=== PATIENT | female | born 1960 | race Caucasian/White ===

== ENCOUNTER 2017-07-03 05:30 | Emergency (ER) | payer OTHER ==
[2017-07-03] MEDS ORDERED: Sodium Chloride 0.9% 1,000 ML ONE ×2 (05:43→06:50)
[2017-07-03] MEDS ORDERED: Ketorolac 30 MG/ML SDV IVPUSH ONE (05:50)
[2017-07-03] MEDS ORDERED: Sodium Chloride 0.9% 5 ML Syringe FLUSH PRN (05:50)
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
[2017-07-03 06:05] VITALS: BP 151/84
[2017-07-03] MEDS ORDERED: Diphtheria,Pertussis(Acell),Tetanus Vaccine 0.5 ML SDV IM ONE (06:33)
[2017-07-03] MEDS ORDERED: Sodium Chloride 0.9% 1,000 ML IV ONE (07:35)
== END 2017-07-03 08:37 | disposition home or self-care (01) ==
LOC: KA.ED 05:30
DX: S93.401A Sprain of unspecified ligament of right ankle, initial encounter (principal); S20.211A Contusion of right front wall of thorax, initial encounter; S80.02XA Contusion of left knee, initial encounter; Z88.5 Allergy status to narcotic agent; V89.2XXA Person injured in unspecified motor-vehicle accident, traffic, initial encounter; Z23 Encounter for immunization
CPT/HCPCS: 71101; 73562; 73610; 73620; 90471; 90715; 96361; 96374; 99284; J1885; J7030